=== PATIENT | male | born 1940 | race African-American/Black ===

== ENCOUNTER 2022-12-29 14:09 | Outpatient (CLI) | payer MEDICARE, SELFPAY ==
[2022-12-29 16:29] LABS: Kit Draw Collected
== END 2022-12-29 14:10 | disposition home or self-care (01) ==
LOC: ANHGOSHLAB 14:12
PROVIDERS: PCP Internal Medicine; Visit Provider Clinical Nurse Specialist
DX: I95.9 Hypotension, unspecified (principal); R97.20 Elevated prostate specific antigen [PSA]; E78.5 Hyperlipidemia, unspecified; E55.9 Vitamin D deficiency, unspecified; Z13.228 Encounter for screening for other metabolic disorders
CPT/HCPCS: 36415

== ENCOUNTER 2023-06-10 15:07 | Outpatient (CLI) | payer MEDICARE, SELFPAY ==
--- NOTE | ~2023-06-10 | US_ITS ---
EXAMINATION: US renal BI DATE: 06/10/2023 16:13 INDICATION: Chronic kidney disease, stage 3B. TECHNIQUE: Multiple ultrasound grayscale images of the kidneys were obtained. COMPARISON: None. FINDINGS: The right kidney measures 8.4 x 4.3 x 5.2 cm. The left kidney measures 9.6 x 5.8 x 5.8 cm. The kidney s demonstrate normal parenchymal echogenicity. There is a 2.1 cm cyst in left kidney. There is no hyd ronephrosis. The bladder is decompressed. There is a 5.1 cm fusiform infrarenal aortic aneurysm. IMPRESSION: 1. 5.1 cm fusiform infrarenal aortic aneurysm. Surgical consultation is recommended. 2. Mild atrophy of right kidney. No hydronephrosis. Reviewed, dictated and finalized at location A. OR MEDICAL ASSISTANT IMPRESSION: 1. 5.1 cm fusiform infrarenal aortic aneurysm. Surgical consultation is recomme nded. 2. Mild atrophy of right kidney. No hydronephrosis.
== END 2023-06-10 15:08 | disposition home or self-care (01) ==
PROVIDERS: PCP Internal Medicine; Visit Provider Internal Medicine Nephrology
DX: N18.32 Chronic kidney disease, stage 3b (principal); I71.43 Infrarenal abdominal aortic aneurysm, without rupture
CPT/HCPCS: 76775

== ENCOUNTER 2023-06-30 14:30 | Outpatient (RCR) | payer MEDICARE, SELFPAY ==
[2023-05-19 15:08] VITALS: BMI 19.3
[2023-05-19 15:13] VITALS: BMI 19.3
[2023-06-30 15:04] VITALS: BMI 19.3; BMI 19.9
== END 2023-08-08 12:38 | disposition home or self-care (01) ==
LOC: ANHDMC 14:30
PROVIDERS: PCP Internal Medicine; Visit Provider Internal Medicine
DX: N18.31 Chronic kidney disease, stage 3a (principal); Z71.3 Dietary counseling and surveillance
CPT/HCPCS: 97802; 97803

== ENCOUNTER 2023-10-11 14:07 | Outpatient (CLI) | payer MEDICARE, SELFPAY ==
[2023-10-11 18:18] LABS: Basophils Percent Auto 0.8 % (0.2-1.2); Eosinophils Absolute Auto 0.2 K/mm3 (0-0.3); Eosinophils Percent Auto 4.1 % (0-4.4); Hematocrit 42.7 % (42.0-52.0); Immature Granulocyte Absolute 0.02 K/mm3 (0.00-0.031); Immature Granulocyte Percent A 0.4 % (0-0.5); Lymphocytes Absolute Auto 1.72 K/mm3 (0.9-3.2); Lymphocytes Percent Auto 33.6 % (18.3-44.2); Mean Corpuscular HGB Conc 30.4 g/dl (32-36); Mean Corpuscular Hemoglobin 26.1 pg (26-34); Mean Corpuscular Volume 85.7 fl (80-100); Mean Platelet Volume 10.8 fl (7.4-10.4); Monocytes Absolute Auto 0.4 K/mm3 (0.1-0.6); Monocytes Percent Auto 8.2 % (2.6-8.5); Neutrophils Absolute Auto 2.7 K/mm3 (1.3-6.7); Neutrophils Percent Auto 52.9 % (45.5-73.1); Platelet Count Result 170 k/mm3 (150-375); Red Blood Count 4.98 M/mm3 (4.6-6.20); Red Cell Distribution Width 14.6 % (11.5-14.5); White Blood Count 5.1 K/mm3 (4.5-10.0)
[2023-10-11 18:58] LABS: Alanine Aminotransferase 19 U/L (6-50); Alkaline Phosphatase 85 U/L (38-126); Anion Gap 6 mmol/L (8-16); Aspartate Amino Transferase 42 U/L (17-59); Bilirubin,Total 0.7 mg/dL (0.2-1.3); Blood Urea Nitrogen 25 mg/dL (9-20); Calcium 9.4 mg/dL (8.4-10.2); Carbon Dioxide 28 mmol/L (22-30); Chloride 104 mmol/L (98-107); Estimated Glomerular Filt Rate 39; Glucose 90 mg/dL (65-110); Potassium 4.6 mmol/L (3.4-5.0); Sodium 138 mmol/L (137-145)
[2023-10-11 19:28] LABS: Prostate Specific Antigen 8.5 ng/mL (< OR = 4.0)
== END 2023-10-11 14:08 | disposition home or self-care (01) ==
LOC: ANHGOSHLAB 14:09
PROVIDERS: PCP Internal Medicine; Visit Provider Internal Medicine
DX: I50.9 Heart failure, unspecified (principal); N18.9 Chronic kidney disease, unspecified; R97.20 Elevated prostate specific antigen [PSA]
CPT/HCPCS: 36415; 80053; 84153; 85025

== ENCOUNTER 2024-03-16 11:45 | Outpatient (CLI) | payer MEDICARE, SELFPAY ==
[2024-03-16 14:10] LABS: Hemoglobin A1C 5.5 % (<5.7)
[2024-03-16 14:20] LABS: Anion Gap 11 mmol/L (4-12); Blood Urea Nitrogen 33 mg/dL (9-20); Calcium 9.3 mg/dL (8.4-10.2); Carbon Dioxide 26 mmol/L (22-30); Chloride 103 mmol/L (98-107); Estimated Glomerular Filt Rate 32; Glucose 105 mg/dL (65-110); Phosphorus 3.7 mg/dL (2.5-4.5); Potassium 4.4 mmol/L (3.4-5.0); Sodium 140 mmol/L (137-145)
[2024-03-16 14:21] LABS: Add Urine Microscopic? YES; Appearance Urine Turbid (Clear); Bacteria Urine 4+ /hpf; Bilirubin Urine Negative (Negative); Blood Urine 3+ (Negative); Color Urine Yellow (Yellow); Glucose Urine UA 3+ mg/dL (Negative); Ketones Urine Trace mg/dL (Negative); Leukocyte Esterase Ur 3+ LEU/UL (Negative); Need Manual Microscopic Reviewed; Nitrate Urine Negative (Negative); Non Pathogenic Casts >20; Protein Urine 1+ mg/dL (Negative); RBC Urine 21-50 /hpf (0-2); Specific Grav Ur 1.016 (1.001-1.035); Squamous Epithelial Cell Urine Few /hpf (Few); WBC Urine >100 /hpf (0-3); pH Urine 5.5 (5.0-9.0)
[2024-03-16 14:39] LABS: Total Protein Urine Random 53 mg/dL; Ur Ttl Prot Creatinine Ratio 0.23 mg/mg (0-0.20)
== END 2024-03-16 11:46 | disposition home or self-care (01) ==
PROVIDERS: PCP Internal Medicine; Visit Provider Clinical Nurse Specialist
DX: R73.9 Hyperglycemia, unspecified (principal); N18.32 Chronic kidney disease, stage 3b; I50.9 Heart failure, unspecified; R39.9 Unspecified symptoms and signs involving the genitourinary system
CPT/HCPCS: 36415; 80069; 81001; 82570; 83036; 84156; 87077; 87086; 87088; 87186

== ENCOUNTER 2024-06-14 09:12 | Outpatient (CLI) | payer MEDICARE, SELFPAY ==
[2024-06-14 18:46] LABS: Add Urine Microscopic? YES; Appearance Urine Cloudy (Clear); Bacteria Urine 4+ /hpf; Bilirubin Urine Negative (Negative); Blood Urine 2+ (Negative); Color Urine Yellow (Yellow); Glucose Urine UA 3+ mg/dL (Negative); Ketones Urine Negative (Negative); Leukocyte Esterase Ur 2+ LEU/UL (Negative); Nitrate Urine Negative (Negative); Protein Urine Negative (Negative); RBC Urine 21-50 /hpf (0-2); Specific Grav Ur 1.012 (1.001-1.035); Squamous Epithelial Cell Urine Occasional /hpf (Few); Urobilinogen Urine 0.2 mg/dL (<2.0); WBC Urine 21-50 /hpf (0-3)
== END 2024-06-14 09:13 | disposition home or self-care (01) ==
LOC: ANHGOSHLAB 09:13
PROVIDERS: PCP Internal Medicine; Visit Provider Clinical Nurse Specialist
DX: R39.9 Unspecified symptoms and signs involving the genitourinary system (principal)
CPT/HCPCS: 81001; 87077; 87086; 87186

== ENCOUNTER 2024-08-14 14:18 | Outpatient (CLI) | payer MEDICARE, SELFPAY ==
[2024-08-14 19:54] LABS: Basophils Percent Auto 0.8 % (0.2-1.2); Eosinophils Absolute Auto 0.2 K/mm3 (0-0.3); Eosinophils Percent Auto 3.4 % (0-4.4); Hematocrit 40.8 % (42.0-52.0); Hemoglobin 12.8 g/dL (14.0-18.0); Immature Granulocyte Absolute 0.02 K/mm3 (0.00-0.031); Immature Granulocyte Percent A 0.4 % (0-0.5); Lymphocytes Absolute Auto 1.58 K/mm3 (0.9-3.2); Lymphocytes Percent Auto 31.4 % (18.3-44.2); Mean Corpuscular HGB Conc 31.4 g/dl (32-36); Mean Corpuscular Hemoglobin 26.9 pg (26-34); Mean Corpuscular Volume 85.7 fl (80-100); Mean Platelet Volume 10.6 fl (7.4-10.4); Monocytes Absolute Auto 0.4 K/mm3 (0.1-0.6); Monocytes Percent Auto 8.3 % (2.6-8.5); Neutrophils Absolute Auto 2.8 K/mm3 (1.3-6.7); Neutrophils Percent Auto 55.7 % (45.5-73.1); Platelet Count Result 121 k/mm3 (150-375); Red Blood Count 4.76 M/mm3 (4.6-6.20); Red Cell Distribution Width 15.3 % (11.5-14.5)
[2024-08-14 19:58] LABS: Add Urine Microscopic? YES; Appearance Urine Cloudy (Clear); Bacteria Urine 4+ /hpf; Bilirubin Urine Negative (Negative); Blood Urine 3+ (Negative); Color Urine Yellow (Yellow); Glucose Urine UA 3+ mg/dL (Negative); Ketones Urine Negative (Negative); Leukocyte Esterase Ur 2+ LEU/UL (Negative); Nitrate Urine Positive (Negative); Protein Urine Trace mg/dL (Negative); RBC Urine 21-50 /hpf (0-2); Specific Grav Ur 1.019 (1.001-1.035); Squamous Epithelial Cell Urine None Seen /hpf (Few); Urobilinogen Urine 0.2 mg/dL (<2.0); WBC Urine >100 /hpf (0-3); pH Urine 5.5 (5.0-9.0)
[2024-08-14 20:09] LABS: Parathyroid Intact 52.5 pg/mL (14.5-75.2)
== END 2024-08-14 14:19 | disposition home or self-care (01) ==
LOC: ANHGOSHLAB 14:19
PROVIDERS: PCP Internal Medicine; Visit Provider Internal Medicine
DX: I50.9 Heart failure, unspecified (principal); N18.32 Chronic kidney disease, stage 3b; E55.9 Vitamin D deficiency, unspecified; N25.81 Secondary hyperparathyroidism of renal origin; D63.8 Anemia in other chronic diseases classified elsewhere; Z87.440 Personal history of urinary (tract) infections
CPT/HCPCS: 36415; 81001; 83970; 85025; 87086; 87186

== ENCOUNTER 2024-12-27 14:36 | Outpatient (CLI) | payer MEDICARE, SELFPAY ==
--- OUTSIDE RECORDS SUMMARY | 2024-12-27 15:16 | XMS_ITS | CONTINUITY OF CARE DOCUMENT ---
Author Name harry mcdonald Address Unknown Organization [facility] Address [address] [place] [address] [address] [place] [address] Phone [phone] Care Team Providers Care Restrooms Or Lounges Maid Name Role Phone Storm Lux MD Unavailable [phone] MICHAEL ISAAC DO Unavailable PROBLEMS Condition Status Date Provider Notes Cardiology examination active Storm Lux MD Mitral regurgitation active Storm Swift Dyslipidemia active Storm Lux MD Coronary artery disease active Storm ramírez MD Pulmonary hypertension active Storm Lux MD Cardiomyopathy active Storm Lux MD Shortness of breath active Ramin Sow MD ENCOUNTERS Date Type Provider Location Encounter Diag nosis 9 - 9 In-person encounter Office Visit Ramin Sow MD [facility] Shortness of breath 4 - 4 In-person encounter Office Visit Storm Lux MD [facility] Cardiology examinationMitral regurgitationDyslipidemiaCoronary artery diseasePulmonary hypertensionCardiomyopathy VITAL SIGNS Date Observation Value Provider Body Mass Index (Ratio) 20.00 kg/m2 Tee Sow MD blood pressure, diastolic 74 mm[Hg] Batsheva nkLogchavez blood pressure, systolic 96 mm[Hg] Kim kLogchavez weight E&M 160 [lb_av] Jazmín Gomez pulse rate 80 /min Jazmín Gomez blood pressure, diastolic 74 mm[Hg] Dom Gomez blood pressure, systolic 96 mm[Hg] She mihaela Gomez respiratory rate E&M 18 /min Jazmín Gomez blood pressure, cuff size large oDm Gomez height E&M 75 [in_i] Jazmín Gomez blood pressure, diastolic 71 mm[Hg] Li nkLogchavez blood pressure, systolic 95 mm[Hg] Kim kLogic blood pressure, cuff size regular Ja rret blood pressure, diastolic 71 mm[Hg] Ja rret blood pressure, systolic 95 mm[Hg] Jar ret pulse rate 67 /min Justin y oxygen saturation, oximetry 94 % Justin respiratory rate E&M 12 /min Justin height E&M 75 [in_i] Justin y ALLERGIES No Known Drug Allergies HISTORY OF MEDICATION USE Medication Status Instructions Dates Provider Indications Com ments Jardiance 10 mg tablet active TAKE 1 TABLET DAILY 4 Storm Lux MD Corlanor 5 mg tablet active Take 1 tablet by mouth twice a day 4 Jay Case NP Inpefa 200 mg tablet completed 1 tablet by mouth once a day 4 - 4 Storm Lux MD Plavix 75 mg tablet active Take 1 tablet by mouth once a day Jay Case NP aspirin 81 mg tablet,chewable active Take 1 tablet by mouth once a day Jay Case NP atorvastatin 80 mg tablet active Take 1 tablet by mouth once a day Jay Case NP torsemide 20 mg tablet active Take 1 tablet by mouth once a day Yordan Fournier RN SOCIAL HISTORY Date Observation Value Provider social history E&M S moking History: Usman lorenzana is a former smoker. Ramin Sow MD social history reviewed E&M revi ewed - no changes required Ramin Sow MD cigarette use yes Jazmín Gomez smoking status Former smoker Jazmín del rosario social history reviewed E&M terrance almendarezed - no changes required Jay Case NP social history E&M S moking History: Usman lorenzana is a former smoker. Jay Case NP cigarette use yes Justin Harris ay smoking status Former smoker Justin Moe rday FUNCTIONAL STATUS Date Observation Value Provider HRA, CV Assess/Plan, Angina (inactive) Management Plan continue current therapy Jay Case NP INSURANCE PROVIDERS Payer name Policy type / Coverage type [employer] O [id number] ADVANCE DIRECTIVES Name Date DISCUSSED - NO DECISION MADE TREATMENT PLAN Date Name Performer [id number],S,n eeds to start toursemide and se how his sympoms are. continue with SGLT2, Corlanor. BP runs to low to tolerate Asar or entresto Ramin Sow MD [id number],C, S table without angina s/p PCI to Ramus. Continue DAPT with ASA and Clopidogrel. Ramin Sow MD [id number],C, L ikely ischemic. He does not have any peripheral edema. He is having increasing shortness of breath, likely related to his MR with planned LEILANI as noted above. Will start Inpefa and Corlanor. His blood pressure is too low for ACEi/ARB/ARNi or B-eduardo. Ramin Sow MD [id number],C, P harriett recently had a MitraClip placed. His last echo reported severe MR (this is post MitraClip). He is redeveloping symptoms of shortness of breath. Will arrange for LEILANI for further evaluation. February 09, 2023 -era liu started touresemide and needs to do that see how his symptoms are. needs to get scheduled for LEILANI. planned for Mar.04 at [facility] Sow MD [id number],C,S table without angina s/p PCI to Ramus. Continue DAPT with ASA and Clopidogrel. Jay Diorgurjitsandhya ALBARO [id number],C,C ontinue high intensity Atorvastatin. Jay Diorgurjitsandhya ALBARO [id number],C,L ikely ischemic. He does not have any peripheral edema. He is having increasing shortness of breath, likely related to his MR with planned LEILANI as noted above. Will start Inpefa and Corlanor. His blood pressure is too low for ACEi/ARB/ARNi or B-eduardo. Jay Manpreet IRVIN [id number],C,P atient recently had a MitraClip placed. His last echo reported severe MR (this is post MitraClip). He is redeveloping symptoms of shortness of breath. Will arrange for LEILANI for further evaluation. Jay Case NP Cardiology:needs to start toursemide and se how his sympoms are. continue with SGLT2, Corlanor. BP runs to low to tolerate Asar or entresto Ramin Sow MD Cardiology: S table without angina s/p PCI to Ramus. Continue DAPT with ASA and Clopidogrel. Ramin Sow MD Cardiology: L ikely ischemic. He does not have any peripheral edema. He is having increasing shortness of breath, likely related to his MR with planned LEILANI as noted above. Will start Inpefa and Corlanor. His blood pressure is too low for ACEi/ARB/ARNi or B-eduardo. Ramin Sow MD Cardiology: Usman atient recently had a MitraClip placed. His last echo reported severe MR (this is post MitraClip). He is redeveloping symptoms of shortness of breath. Will arrange for LEILANI for further evaluation. February 09, 2023 -era liu started touresemide and needs to do that see how his symptoms are. needs to get scheduled for LEILANI. planned for Aug.11 at [facility] Ramin Sow MD Cardiology:Stable wi thout angina s/p PCI to Ramus. Continue DAPT with ASA and Clopidogrel. Jay Case NP Cardiology:Continue high intensi ty Atorvastatin. Jay Manpreet IRVIN Cardiology:Likely is chemic. He does not have any peripheral edema. He is having increasing shortness of breath, likely related to his MR with planned LEILANI as noted above. Will start Inpefa and Corlanor. His blood pressure is too low for ACEi/ARB/ARNi or B-eduardo. Jay Case NP Cardiology:Patient r ecently had a MitraClip placed. His last echo reported severe MR (this is post MitraClip). He is redeveloping symptoms of shortness of breath. Will arrange for LEILANI for further evaluation. Jaymagnolia Case NP Date Name PROBNP, N TERMINAL FOLATE, SERUM VITAMIN B12 IRON AND TOTAL IRON BINDING CAPACITY FERRITIN CBC (INCLUDES DIFF/P LT) BASIC METABOLIC PANE L W/EGFR Microalb/Creatinine Urine, Random CRP, high sensitivit y Lipoprotein (a) LIPID PANEL HISTORY OF PROCEDURES Procedure Date Procedure Name Provider Procedure Notes S tatus EKG Ramin Sow MD compl eted EKG Storm Lux MD complete d
--- OUTSIDE RECORDS SUMMARY | 2024-12-27 15:16 | XMS_ITS | Clinical Summary ---
Author Organization [facility] Address [address] [place] [address] Care Team Providers Care Country Sales Manager Name Role Phone Unavailable Primary Care Provider Unavailabl e Medications No known medications Active Problems No known active problems Encounters Date Type Department Care Team Description 12/18/2024 External Device Data [facility] ABSTRACTION Provider, Abstract 12/13/2024 External Device Data [facility] Provider, Abstract 12/12/2024 External Device Data [facility] Provider, Abstract 12/11/2024 External Device Data [facility] Provider, Abstract 10/10/2024 External Device Data [facility] Provider, Abstract 09/29/2024 External Device Data [facility] Provider, Abstract 2024 External Device Data [facility]STRACTION Provider, Abstract from Last 3 Months Immunizations Immunization Administration Dates Next Due (AREXVY)(61 YR UP) RSV, KENZIE MBINANT, PROTEIN SUBUNIT RSVPREF, ADJUVANT RECONSTITUTED, 0.5 ML, PF 08/18/2023 (COMIRNATY)(13 YR UP) COVID- 19 VACCINE, MRNA, SPIKE PROTEIN, LNP, ALICIA(PF) 30 MCG/0.3 ML IM SUSP 06/22/2023 Social History Tobacco Use Types Packs/Day Years Used Date Smoking Tobacco: Never Smokeless Tobacco: Never Sex and Gender Information Value Date Recorded Sex Assigned at Not on file Legal Sex Male 11:27 AM CDT Gender Identity Not on file Sexual Orientation Not on file Last Filed Vital Signs Vital Sign Reading Time Taken Comments Blood Pressure - - Pulse - - Temperature - - Respiratory Rate 20 08/23/2023 10:51 AM [employer] Oxygen Saturation - - Inhaled Oxygen Concentration - - Weight 71.7 kg (158 lb) 06/25/2024 12:45 PM [employer] Height 190.5 cm (6' 3) 06/25/2024 12:45 PM [employer] Body Mass Index 19.75 06/25/2024 12:45 PM [employer] Plan of Treatment Health Maintenance Due Date Last Done Comments DTAP/TDAP/TD VACCINES (1 - Tdap) 1959 PNEUMOCOCCAL VACCINE 50+ YEARS (1 of 2 - PCV) 09/28/18 62 ZOSTER VACCINE (1 of 2) 09/29/1991 INFLUENZA VACCINE (#1) 2024 COVID-19 Vaccine (2 - season) 2024 RSV VACCINE (60+ or ) Completed 08/18/2023 Insurance [employer] Medicare Part D [employer] PPO MCR
--- OUTSIDE RECORDS SUMMARY | 2024-12-27 15:16 | XMS_ITS | Referral Summary ---
Author Organization [facility] Address [address] [place] [address] Care Team Providers Care Aerospace Medicine Physician Name Role Phone Jose Kim DO Primary Care Provider [phone] Jose Smith MD Unavailable Encounters Date Type Department Care Team Description 09/26/2024 Orders Only [facility] at [address] [place] [phone] Dionisio Nam MD Aftercare following surgery of the circulatory system (Primary Dx); Infrarenal abdominal aortic aneurysm (AAA) without rupture 09/26/2024 10:00 AM CRIPPLE WORKER Office Visit [facility] at [address] [place] [phone] Fernanda Okeefe PA Infrarenal abdominal aortic aneurysm (AAA) without rupture (Primary Dx); Aneurysm of internal iliac artery; Aneurysm of right common iliac artery; Mixed hyperlipidemia from Last 3 Months Allergies No known active allergies Medications folic acid (FOLVITE) 400 mcg tablet Take 1 tablet (400 mcg total) by mouth with lunch Active torsemide (DEMADEX) 5 mg tablet TAKE 1/2 TABLET(2.5 MG) BY MOUTH DAILY 45 tablet 3 04/23/2024 Active spironolactone (ALDACTONE) 25 mg tablet TAKE 1 TABLET(25 MG) BY MOUTH DAILY 30 tablet 11 04/23/2024 Active clopidogreL (PLAVIX) 75 mg tablet TAKE 1 TABLET(75 MG) BY MOUTH DAILY. 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 On CT has no evidence of endoleak and all stents are patent. Needs ongoing surveillance with repeat CT abdomen pelvis in 6 months Assessment & Plan (02/09/2024 11:35 AM CDT): Impression: Patient is status post endovascular repair of a AAA, and bilateral common iliac artery aneurysms. He denies any symptoms of claudication, ischemic rest pain or ulcerations to his lower extremity. Plan: Continue ongoing risk factor modifications. -continue Plavix. -patient to follow-up in 4 weeks for re-evaluation with CTA of abdomen pelvis for further evaluation of repair. Aneurysm of right common iliac artery 12/21/2023 Assessment & Plan (01/20/2024 12:10 PM CDT): Iliac branch device Assessment & Plan (12/22/2023 7:27 AM CDT): Risks benefits and alternatives to endovascular abdominal aortic aneurysms repair with iliac branch device for a right common iliac artery aneurysms discussed with the patient and his , risks including bleeding, infection, perforation, contrast induced nephropathy, dissection, thrombosis distal embolization ischemia to the lower extremities or pelvis, HI stroke and . They wished to proceed. We did discuss the need for coil embolization of his left hypogastric artery aneurysm. Aneurysm of internal iliac artery 12/21/2023 Assessment & Plan (01/20/2024 12:10 PM CDT): Status post coil embolization of left hypogastric artery and preparation for a AAA repair and iliac branch device. Some buttock claudication which has resolved. Assessment & Plan (12/22/2023 7:28 AM CDT): Risks benefits alternatives to coil embolization of his left hypogastric artery aneurysms discussed, risks including bleeding, infection, perforation, contrast induced nephropathy, dissection, thrombosis, distal embolization, buttock claudication and need further surgery. He wished proceed. We discussed this would be a staged approach with the coil embolization happening 1st as an outpatient. Nonischemic cardiomyopathy 12/14/2023 Infrarenal abdominal aortic aneurysm (AAA) witho ut rupture 11/10/2023 Assessment & Plan (01/20/2024 12:10 PM CDT): Scheduled for endovascular abdominal aortic aneurysm repair with endograft and right iliac branch device. Risks benefits alternatives discussed I prior appointment with the patient and his . Plan for surgery this next week. Assessment & Plan (12/22/2023 7:27 AM CDT): Endovascular abdominal aortic aneurysm, risks benefits alternatives as above and discussion of the right common iliac artery aneurysm. Assessment & Plan (12/12/2023 3:22 PM CDT): 5.4 cm infrarenal abdominal aortic aneurysms as well as a 3 cm right common iliac artery aneurysms as well as a left hypogastric artery aneurysm. We will plan for follow-up in 1-2 weeks after I have had further time to review his imaging, he is likely going to need coil embolization of the left hypogastric artery aneurysms with an iliac branch device and endograft for the AAA and right common iliac artery aneurysm. Continue risk factor modification with Plavix statin therapy and good blood pressure control. Assessment & Plan (11/10/2023 3:07 PM CDT): Impression: Patient has a known infrarenal abdominal aortic aneurysms as well as bilateral iliac artery aneurysms found on CT scan of abdomen and pelvis performed in October 2022. He remains asymptomatic. Plan: Recommend further evaluation of aneurysms with CT of abdomen and pelvis follow-up in 2 weeks for re-evaluation. PVD (peripheral vascular disease) 11/10/2023 Assessment & Plan (11/10/2023 3:13 PM CDT): Impression: Patient has a history of balloon angioplasty to left PT and peroneal artery and a drug eluting stent to the left PT for acute limb ischemia. He currently denies any ischemic rest pain or ulcerations to his lower extremity. Plan: CTA of abdomen pelvis with runoff for further evaluation. Follow-up in 2 weeks. Mixed hyperlipidemia 11/10/2023 Assessment & Plan (12/12/2023 3:23 PM CDT): Stable continue Lipitor 80 mg. Assessment & Plan (11/10/2023 3:14 PM CDT): Impression: Chronic and stable. Plan: Continue atorvastatin. Chronic systolic heart failure 11/02/2023 Assessment & Plan (12/12/2023 3:22 PM CDT): Stable continue torsemide 2.5 mg. Assessment & Plan (11/02/2023 10:31 AM CDT): Persistent, severe LV dysfunction despite > 3 months GDMT. NYHA class 2-3 symptoms. ECG shows narrow QRS. No benefit to EXECUTIVE RELATIONS SPECIALIST. Recommend ICD implantation for primary prevention of SCD. Reviewed procedural steps, risks/benefits, recovery in detail. Elevated procedural risk due to severe cardiomyopathy. --ICD implantation w/anesthesia ([employer]) UTI (urinary tract infection) 04/17/2023 senior living (current) use of anticoagulants 2022 Aftercare following surgery of the circulatory s ystem 03/29/2023 History of mitral valve replacement 02/21/2023 Protein-calorie malnutrition, severe 02/14/2023 Shortness of breath 02/13/2023 Severe mitral regurgitation 11/23/2022 Acute hypoxemic respiratory failure 11/21/2022 CALISTA (acute kidney injury) 11/10/2022 NSTEMI (non-ST elevated myocardial infarction) 0 11/10/2022 Acute lower limb ischemia 11/10/2022 Social History Tobacco Use Types Packs/Day Years Used Date Smoking Tobacco: Former Cigarettes Q uit: 07/25/2022 Tobacco Cessation:Counseling Given: Not Answered Alcohol Use Standard Drinks/Week Comments Not Currently 0 (1 standard drink = 0.6 oz pur e alcohol) [facility] Utilities Answer Date Recorded In the past 12 months has th e electric, gas, oil, or water company threatened to shut off services in your home? No 01/24/2024 Social Connection and Isolat ion Panel [NHANES] Answer Date Recorded In a typical week, how many times do you talk on the phone with family, friends, or neighbors? More than three times a week 01/24/2024 How often do you get togethe r with friends or relatives? More than three times a week 01/24/2024 How often do you attend chur ch or taoist services? Never 01/24/2024 Active Member of Clubs or Organizations Not on f ile 01/24/2024 How often do you attend meet ings of the clubs or organizations you belong to? More than 4 times per year 01/24/2024 Are you , , di vorced, , never , or living with a partner? 01/24/2024 AUDIT-C Answer Date Recorded Q1: How often do you have a drink containing alc ohol? Never 01/23/2024 Q2: How many drinks containi ng alcohol do you have on a typical day when you are drinking? 1 or 2 01/23/2024 Q3: How often do you have six or more drinks on one occasion? Never 01/23/2024 Overall Financial Resource Strain (CARDIA) Answe r Date Recorded How hard is it for you to pa y for the very basics like food, housing, medical care, and heating? Not hard at all 01/24/2024 Hunger Vital Sign Answer Date Recorded Within the past 12 months, y ou worried that your food would run out before you got the money to buy more. Never true 01/24/20 24 Within the past 12 months, t he food you bought just didn't last and you didn't have money to get more. Never true 01/24/2024 PRAPARE - Transportation Answer Date Re corded In the past 12 months, has l ack of transportation kept you from medical appointments or from getting medications? No 08/2023 In the past 12 months, has l ack of transportation kept you from meetings, work, or from getting things needed for daily living? No 01/24/2024 Housing Stability Vital Sign Answer Perez e Recorded In the last 12 months, was t here a time when you were not able to pay the mortgage or rent on time? No 04/18/2023 In the last 12 months, how many places have you lived? 1 04/18/2023 In the last 12 months, was t here a time when you did not have a steady place to sleep or slept in a chcf (including now)? No 04/18/2023 Housing Stability Vital Sign Answer Perez e Recorded In the last 12 months, was t here a time when you were not able to pay the mortgage or rent on time? No 01/24/2024 In the past 12 months, how m any times have you moved where you were living? 0 01/24/2024 At any time in the past 12 m [facility], were you homeless or living in a chcf (including now)? No 01/24/2024 Personal Safety Answer Date Recorded Have you ever been in or are you currently in a harmful physical or emotional relationship or is someone making you feel afraid or unsafe? Denies 01/23/2024 Sex and Gender Information Value Date Recorded Sex Assigned at Not on file Legal Sex Male 11:26 AM CDT Gender Identity Not on file Sexual Orientation Not on file Last Filed Vital Signs Vital Sign Reading Time Taken Comments Blood Pressure 110/73 09/26/2024 10:09 AM CRIPPLE WORKER Pulse 69 09/26/2024 10:09 AM CRIPPLE WORKER Temperature 36.7 C (98.1 F) 01/24/2024 8:00 AM CDT Respiratory Rate 22 01/24/2024 10:00 AM CDT Oxygen Saturation 95% 09/26/2024 10:09 AM CRIPPLE WORKER Inhaled Oxygen Concentration - - Weight 74.8 kg (165 lb) 09/26/2024 10:09 AM CRIPPLE WORKER Height 190.5 cm (6' 3) 09/26/2024 10:09 AM CRIPPLE WORKER Body Mass Index 20.62 09/26/2024 10:09 AM CRIPPLE WORKER Plan of Treatment Not on file Medical Devices Implanted Type Area Point Of Care Technician Device Identifier Shelf Expiration Date Model / Serial / Lot Chicas V[employer] Mitraclip G4 Xtw Cardiac Valve Clip [id number] - [id number] Implanted:Qty: 1 on 11/24/2022 by Moiz Whitten MD PhD at [facility] N/A: Mitral Valve [employer] 09/06/2023 [id number] -XTW / / [id number] [employer] Mitraclip G4 Xtw Cardiac Valve Clip Lwz4265-Ctv - [id number] Implanted:Qty: 1 on 11/24/2022 by Moiz Whitten MD PhD at [facility] N/A: Mitral Valve [employer] 09/06/2023 [id number] -XTW / / [id number] [employer] Angio-Seal Vip 6fr Closere Device [id number] - [id number] - [id number] Implanted:Qty: 1 on 11/11/2022 by Benjamin Chang MD at [facility] Right: Groin [employer] 05/24/2023 [id number] / [id number] / [id number] [employer] [place] Excluder 10mm 10cm Branch Component Iliac Graft Endovascular [id number] - [id number] - [id number] Implanted:Qty: 1 on 01/23/2024 by Dionisio Nam MD at [facility] Endoprosthesi s Right: Common Iliac Artery [employer] [id number] 10/10/2024 [id number] 10A / [id number] / [employer] Defib Cardiac [id number] [id number] [place] Implantable 2 Chamber Ecepd567m - [id number] - [id number] Implanted:Qty: 1 on 12/22/2023 by Moises Rivera III, MD at [facility] ICD [employer] [id number] 08/24/2025 CDDRA50 0Q / [id number] / [employer] Cath Iab 6in 7.5fr Linear .025in Durathane Insertion Kit 9158-62-2884-0 1 - [id number] - [id number] Implanted:Qty: 1 on 11/11/2022 by Benjamin Chang MD at [facility] LVAD Right: Groin [employer] 09/09/2025 0684-00 -0480-[id number] [employer] Durata 6.8fr 65cm True Bipolar Active Fixation Extendable 1 Coil 7122q/65 - [id number] - [id number] Implanted:Qty: 1 on 12/22/2023 by Moises Rivera III, MD at [facility] Lead [employer] [id number] 10/22/2026 7122Q/6 5 / [id number] / [employer] Tendril Sts 6fr 52cm Is-1 Connector Active Fixation Bipolar Soft 2087tc/ - [id number] - [id number] Implanted:Qty: 1 on 12/22/2023 by Moises Rivera III, MD at [facility] Lead [employer] [id number] 11/21/20262087TC/ 52 / [id number] / [employer] Valve Coronary Mitral Tissue Stented Epic Plus 33mm F858-45j-26 - [id number] - [id number] Implanted:Qty: 1 on 02/21/2023 by Marco Antonio Cary MD at [facility] Prosthetic Valve N/A: Mitral Valve [employer] 09/26/2026 E200-33 M / [id number] / [employer] Stent Coronary De Rx Cocr Ors Msn 3.0x13mm 933355 - [id number] - [id number] Implanted:Qty: 1 on 11/11/2022 by Benjamin Chang MD at [facility] Stent Ramus Intermedius Coronary Artery [employer] 05/25/2023 115832 / [id number] [employer] Stent Coronary De Rx Cocr Ors Msn 3.0x30mm 564253 - [id number] Implanted:Qty: 1 on 11/14/2022 by Carol Brady MD PhD at [facility] Stent Left: Other - see comments [employer] [id number] 02/10/2024 414913 / / [id number] Description:Posterior tibial artery [employer] [place] Excluder 12mm 7cm Internal Component Iliac Graft [id number] - [id number] - [id number] Implanted:Qty: 1 on 01/23/2024 by Dionisio Nam MD at [facility] Stent Right: Internal Iliac Vein [employer] [id number] 01/18/2026 WFD2053 07A / [id number] / Wl [employer] Excluder 14.5mm 28.5mm 12cm 5.5cm Conformable Active Control Trunk [id number] - [id number] - [id number] Implanted:Qty: 1 on 01/23/2024 by Dionisio Nam MD at [facility] Stent Right: Aorta [employer] [id number] 10/30/2026 DPR9491 12 / [id number] / Wl [employer] [place]on Excluder 27mm 21.5-25mm 10cm Sinusoidal Stent Seal Cuff [id number] - [id number] - [id number] Implanted:Qty: 1 on 01/23/2024 by Dionisio Nam MD at [facility] Stent Right: Common Iliac Artery [employer] [id number] 05/30/2026 [id number] 00 / [id number] / W[employer] [place] Excluder 12mm 14cm Contralateral Leg Graft Endovascular [id number] - [id number] - [id number] Implanted:Qty: 1 on 01/23/2024 by Dionisio Nam MD at [facility] Stent Left: External Iliac Artery [employer] [id number] 08/08/2026 FJF3770 00 / [id number] / Wl [employer] 28.5mm 24-26mm 3.3cm Aorta Graft Endovascular Txa085024 - [id number] - [id number] Implanted:Qty: 1 on 01/23/2024 by Dionisio Nam MD at [facility] Stent Right: Common Iliac Artery [employer] [id number] 04/21/2024 TNH3235 00 / [id number] / [employer] Device Clsr Perclose Prostyle Sut-Mediatd Closure-Repair Sys 50821-80 - [id number] Implanted:Qty: 1 on 11/24/2022 by Moiz Whitten MD PhD at [facility] Vascular Closure Device [employer] 08/24/2024 88090-6 [id number] [employer] Device Clsr Perclose Prostyle Sut-Mediatd Closure-Repair Sys 93798-25 - [id number] Implanted:Qty: 1 on 11/24/2022 by Moiz Whitten MD PhD at [facility] Vascular Closure Device [employer] 08/24/2024 45260-3 [id number] [employer] Mitraclip Implant G4 System [id number] - [id number] Implanted:Qty: 1 on 11/24/2022 by Moiz Whitten MD PhD at [facility] [employer] [id number] 0 / / [employer] Inc Rosalinda Pod 8mm 60cm Complex Occulusion Device Coil Embolization Rbypod8 - [id number] Implanted:Qty: 1 on 01/09/2024 by Dionisio Nam MD at [facility] [employer] Inc 06/26/2031 RBYPOD8 / / [id number] Pen[employer] Inc Pod 60cm Pack J-Soft Coil Embolization Sterile Latex Free Abommzz94 - [id number] Implanted:Qty: 1 on 01/09/2024 by Dionisio Nam MD at [facility] [employer] 11/02/2030 RBYPODJ 60 / / [id number] [employer] Inc Pod 60cm Pack J-Soft Coil Embolization Sterile Latex Free [id number] - [id number] Implanted:Qty: 1 on 01/09/2024 by Dionisio Nam MD at [facility] [employer] Inc 11/02/2030 RBYPODJ 60 / / [id number] Pen[employer] Inc Penumbra Coil 400 Rosalinda .02in 14mm 60cm Complex Large Volume Fully [id number] - [id number] Implanted:Qty: 1 on 01/09/2024 by Dionisio Nam MD at [facility] [id number] 04/10/2031 GIV3I54 60 / / [id number] [facility] Pod 60cm Pack J-Soft Coil Embolization Sterile Latex Free [id number] - [id number] Implanted:Qty: 1 on 01/09/2024 by Dionisio Nam MD at [facility] 11/02/2030 RBYPODJ 60 / / [id number] [employer] System Closure Repair Femoral Artery Suture Mediated Perclose Prostyle 36323-78 - [id number] Implanted:Qty: 1 on 01/23/2024 by Dionisio Nam MD at [facility] Left: Groin [employer] 08/24/2025 09849-6 3 / / [id number] [employer] System Closure Repair Femoral Artery Suture Mediated Perclose Prostyle 74791-58 - [id number] Implanted:Qty: 1 on 01/23/2024 by Dionisio Nam MD at [facility] Left: Groin [employer] 08/24/2025 85134-9 3 / / [id number] [employer] System Closure Repair Femoral Artery Suture Mediated Perclose Prostyle 94431-31 - [id number] Implanted:Qty: 1 on 01/23/2024 by Dionisio Nam MD at [facility] Right: Groin [employer] 08/24/2025 40393-6 3 / / [id number] [employer] System Closure Repair Femoral Artery Suture Mediated Perclose Prostyle 76409-68 - [id number] Implanted:Qty: 1 on 01/23/2024 by Dionisio Nam MD at [facility] Right: Groin [employer] 08/24/2025 26160-6 3 / / [id number] Explanted Type Area Point Of Care Technician Device Identifier Shelf Expiration Date Model / Serial / Lot Bard Peripheral Vascular Bard .25x.25in Marcy Thk1.65mm Square [employer] Cardi[employer] Ptfe 164332 - [id number] Explanted:Qty: 1 on 02/21/2023 by Marco Antonio Cary MD at [facility] N/A: Heart Bard Peripheral Vascular [id number] / / Insurance [facility] MEDICARE [employer] MEDICARE [employer] MEDICARE HMO Advance Directives For more information, please contact: [phone] * Full Code (Latest Code Status on File) Date Activated Date Inactivated Comments 01/23/2024 2:28 PM 01/24/2024 5:43 PM * Full Code Date Activated Date Inactivated Comments 01/09/2024 1:30 PM 01/09/2024 7:26 PM * Full Code Date Activated Date Inactivated Comments 12/22/2023 5:48 PM 12/23/2023 12:56 AM * Full Code Date Activated Date Inactivated Comments 04/17/2023 4:23 AM 04/20/2023 9:56 PM * Full Code Date Activated Date Inactivated Comments 02/13/2023 5:32 AM 03/02/2023 8:18 PM Care Teams Aerospace Medicine Physician Relationship Specialty Start Date End Date Jose Kim DO PCP - General Internal Medicine 02/12/23 Jose Smith MD [address] [place] [address] Consulting Physician Cardiology 03/29/23
--- OUTSIDE RECORDS SUMMARY | 2024-12-27 15:16 | XMS_ITS | Clinical Summary ---
Author Organization [facility] Address [address] [place] [address] Phone Care Team Providers Care Day Spa Manager Name Role Phone Elisa Morales APRN, RIVETING MACHINE OPERATOR Primary Care Provider Social History Tobacco Use Types Packs/Day Years Used Date Smoking Tobacco: Never Assessed Sex and Gender Information Value Date Recorded Sex Assigned at Not on file Legal Sex Male 12:11 AM CDT Gender Identity Not on file Sexual Orientation Not on file Plan of Treatment Health Maintenance Due Date Last Done Comments Hepatitis C Virus (HCV) Screening 1940 Pneumococcal Immunization (50+ years) (1 of 1 - PCV) 09/29/1991 Zoster Immunization (1 of 2) 09/29/1991 Respiratory Syncytial Virus (RSV) Immunization (Adult) (1 - 1-dose 75+ series) 2016 Influenza Immunization (#1) 2024 SARS-COV-2 Immunization ( season) 2024 12/11/2021, 06/08/2021, 10/02/2020, Additional history exists DTaP/Tdap/Td Immunization Discontinued 10/14/2016 TdaP Immunization Completed 10/14/2016 Hepatitis B Immunization Aged Out No longer eligible based on patient's age to complete this topic Meningococcal Immunization (ACWY) Aged Out No longer eligible based on patient's age to complete this topic Rotavirus Immunization Aged Out No lo nger eligible based on patient's age to complete this topic Insurance MEDICARE C WELLCARE Care Teams Day Spa Manager Relationship Specialty Start Date End Date Elisa Morales, METAL ROOM DENTAL TECHNICIAN, RIVETING MACHINE OPERATOR [address] [facility] [address], [place] [address] PCP - General Advanced Practice Nurse 01/18/23
--- OUTSIDE RECORDS SUMMARY | 2024-12-27 15:16 | XMS_ITS | Clinical Summary ---
Author Organization [facility] al Address [address] [place] [address] Care Team Providers Care Client Technical Support Associate Name Role Phone Jose Kim DO Primary Care Provider [phone] Jose Smith MD Unavailable [phone] Allergies No known active allergies Medications folic [...] ischemia to the lower extremities or pelvis, ME stroke and . They wished to proceed. [...] ECG shows narrow QRS. 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 Recommend ICD implantation for primary prevention of SCD. Reviewed procedural steps, risks/benefits, recovery in detail. Elevated procedural risk due to severe cardiomyopathy. --ICD implantation w/anesthesia ([employer]) UTI (urinary tract infection) 04/17/2023 care home (current) use of anticoagulants 2022 Aftercare following surgery of the circulatory s ystem 03/29/2023 History of mitral valve replacement 02/21/2023 Protein-calorie malnutrition, severe 02/14/2023 Shortness of breath 02/13/2023 Severe mitral regurgitation 11/23/2022 Acute hypoxemic respiratory failure 11/21/2022 CALISTA (acute kidney injury) 11/10/2022 NSTEMI (non-ST elevated myocardial infarction) 0 11/10/2022 Acute lower limb ischemia 11/10/2022 Encounters Date Type Department Care Team Description 09/26/2024 10:00 AM CARD GAME 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 Office Visit [facility] at [address] [place] [phone] Fernanda Okeefe PA Infrarenal abdominal aortic aneurysm (AAA) without rupture (Primary Dx); Aneurysm of internal iliac artery; Aneurysm of right common iliac artery; Mixed hyperlipidemia 09/26/2024 Orders Only [facility] at [address] [place] [phone] Dionisio Nam MD Aftercare following surgery of the circulatory system (Primary Dx); Infrarenal abdominal aortic aneurysm (AAA) without rupture from Last 3 Months Surgical History Surgery Date Site/Laterality Comments US GUIDED THORACENTESIS 12/03/2022 N/A CARDIAC STENT PLACEMENT 01/2023 MITRAL VALVE REPLACEMENT 02/21/[address] [facility] Epic tissue CARDIAC DEFIBRILLATOR PLACEMENT 12/22/2023 Left Chicas Galant, Lt upper chest. TONSILLECTOMY Childhood Medical History Medical History Date Comments CHF (congestive heart failure) ([facility]) High cholesterol Nonischemic cardiomyopathy ([facility]) Infrarenal abdominal aortic aneurysm, without ru pture S/P MVR (mitral valve replacement) CAD (coronary artery disease) NSTEMI (non-ST elevated myocardial infarction) ( [facility]) 2022 Hypertension DVT (deep venous thrombosis) (CMS/HCC) (HCC), H/ O 2022 COPD (chronic obstructive pulmonary disease) ([facility]) History of pleural effusion 2022 CKD (chronic kidney disease) Social History Tobacco Use Types Packs/Day Years Used Date Smoking Tobacco: Former Cigarettes Q uit: 07/25/2022 Tobacco Cessation:Counseling Given: Not Answered Alcohol Use Standard Drinks/Week Comments Not Currently 0 (1 standard drink = 0.6 oz pur e alcohol) [employer] 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 Never 01/24/2024 Active Member of Clubs [...] place to sleep or slept in a assisted (including now)? No 04/18/2023 Housing Stability Vital Sign Answer Perez e Recorded In the last 12 months, was t here a time when you were not able to pay the mortgage or rent on time? No 01/24/2024 In the past 12 months, how m any times have you moved where you were living? 0 01/24/2024 At any time in the past 12 m [facility], were you homeless or living in a assisted (including now)? No 01/24/2024 Personal Safety Answer [...] on file Sexual Orientation Not on file Obstetrics History Last Filed Vital Signs Vital Sign Reading Time Taken Comments Blood Pressure 110/73 09/26/2024 10:09 AM CARD GAME OPERATOR Pulse 69 09/26/2024 10:09 AM CARD GAME OPERATOR Temperature 36.7 C (98.1 F) 01/24/2024 8:00 AM CDT Respiratory Rate 22 01/24/2024 10:00 AM CDT Oxygen Saturation 95% 09/26/2024 10:09 AM CARD GAME OPERATOR Inhaled Oxygen Concentration - - Weight 74.8 kg (165 lb) 09/26/2024 10:09 AM CARD GAME OPERATOR Height 190.5 cm (6' 3) 09/26/2024 10:09 AM CARD GAME OPERATOR Body Mass Index 20.62 09/26/2024 10:09 AM CARD GAME OPERATOR Plan of Treatment Health Maintenance Due Date Last Done Comments Depression Screening 1940 Hepatitis B Screening 09/29/1959 Pneumococcal vaccine 65+ (1 of 2 - PCV) 1960 Zoster Vaccine (1 of 2) 09/29/1991 Well Visit 65+ 2006 Covid-19 Vaccine (5 - 2023-2 5 season) 2024 12/11/2021, 06/08/2021, 10/02/2020, Additional history exists Fall Risk Assessment 01/22/2025 01/23/2024 Influenza Vaccine (Season Ended) 2025 DTaP/Tdap/Td Vaccine (2 - Td or Tdap) 10/14/2026 10/14/2016 Medical Devices Implanted Type Area Creative Developer Device Identifier Shelf Expiration Date Model / Serial / Lot Chicas Vascular Mitraclip G4 Xtw Cardiac Valve Clip [id number] - [id number] Implanted:Qty: 1 on 11/24/2022 by Moiz Whitten MD PhD at [facility] Clip N/A: Mitral Valve [employer] 09/06/2023 [id number] -XTW / / [id number] Chicas V[employer] Mitraclip G4 Xtw Cardiac Valve Clip Hig0157-Srh - [id number] Implanted:Qty: 1 on 11/24/2022 by Moiz Whitten MD PhD at [facility] Clip N/A: Mitral Valve [employer] 09/06/2023 [id number] -XTW / / [id number] [employer] Ashley Angio-Seal Vip 6fr Closere Device [id number] - [id number] - [id number] Implanted:Qty: 1 on 11/11/2022 by Benjamin Chang MD at [facility] Collagen Right: Groin [employer] Ashley 05/24/2023 [id number] / [id number] / [id number] [employer] Willard Excluder 10mm 10cm Branch Component Iliac Graft Endovascular [id number] - [id number] - [id number] Implanted:Qty: 1 on 01/23/2024 by Dionisio Nam MD at [facility] Endoprosthesi s Right: Common Iliac Artery [employer] [id number] 10/10/2024 [id number] 10A / [id number] / Chicas V[employer] Defib Cardiac [id number] 58g51bb [place] Implantable 2 Chamber Nhasi232h - [id number] - [id number] Implanted:Qty: 1 on 12/22/2023 by Moises Rivera III, MD at [facility] ICD Chicas Vascular [id number] 08/24/2025 [id number] 0Q / [id number] / [employer] [place] [employer] Cath Iab 6in 7.5fr Linear .025in Durathane Insertion Kit 5484-28-8584-0 1 - [id number] - [id number] Implanted:Qty: 1 on 11/11/2022 by Benjamin Chang MD at [facility] LVAD Right: Groin [employer] 09/09/2025 0684-00 -0480-0 / [id number] 14 / [id number] [employer] Durata 6.8fr 65cm True Bipolar Active Fixation Extendable 1 Coil 7122q/65 - [id number] - [id number] Implanted:Qty: 1 on 12/22/2023 by Moises Rivera III, MD at [facility] Lead [facility] [employer] [id number] 10/22/2026 7122Q/6 5 / [id number] 26 / [employer] Tendril Sts 6fr 52cm Is-1 Connector Active Fixation Bipolar Soft 52 - [id number] - [id number] Implanted:Qty: 1 on 12/22/2023 by Moises Rivera III, MD at [facility] Lead [facility] [employer] [id number] 11/21/2026 52 / [id number] / [employer] Valve Coronary Mitral Tissue Stented Epic Plus 33mm L506-61n-71 - [id number] - [id number] Implanted:Qty: 1 on 02/21/2023 by Marco Antonio Cary MD at [facility] Prosthetic Valve N/A: Mitral Valve [facility] [employer] Inc 09/26/2026 E200-33 M / [id number] / Biotron[employer] Inc Stent Coronary De Rx Cocr Ors Msn 3.0x13mm 180055 - [id number] - [id number] Implanted:Qty: 1 on 11/11/2022 by Benjamin Chang MD at [facility] Stent Ramus Intermedius Coronary Artery [employer] 05/25/2023 253681 / [id number] / [id number] [employer] Inc Stent Coronary De Rx Cocr Ors Msn 3.0x30mm 134496 - [id number] Implanted:Qty: 1 on 11/14/2022 by Carol Brady MD PhD at [facility] Stent Left: Other - see comments [employer] [id number] 02/10/2024 770573 / / [id number] Description:Posterior tibial artery [employer] Willard Excluder 12mm 7cm Internal Component Iliac Graft [id number] - [id number] - [id number] Implanted:Qty: 1 on 01/23/2024 by Dionisio Nam MD at [facility] Stent Right: Internal Iliac Vein [employer] [id number] 01/18/2026 RJN2134 07A / [id number] / W[employer] Excluder 14.5mm 28.5mm 12cm 5.5cm Conformable Active Control Trunk [id number] - [id number] - [id number] Implanted:Qty: 1 on 01/23/2024 by Dionisio Nam MD at [facility] Stent Right: Aorta [employer] [id number] 10/30/2026 EUH0618 12 / [id number] / W[employer] Willard-Talon Excluder 27mm 21.5-25mm 10cm Sinusoidal Stent Seal Cuff [id number] - [id number] - [id number] Implanted:Qty: 1 on 01/23/2024 by Dionisio Nam MD at [facility] Stent Right: Common Iliac Artery [employer] [id number] 05/30/2026 [id number] 00 / [id number] / W[employer] Willard Excluder 12mm 14cm Contralateral Leg Graft Endovascular [id number] - [id number] - [id number] Implanted:Qty: 1 on 01/23/2024 by Dionisio Nam MD at [facility] Stent Left: External Iliac Artery [employer] [id number] 08/08/2026 GSC7406 00 / [id number] / W[employer] 28.5mm 24-26mm 3.3cm Aorta Graft Endovascular Kwe595405 - [id number] - [id number] Implanted:Qty: 1 on 01/23/2024 by Dionisio Nam MD at [facility] Stent Right: Common Iliac Artery W[employer] [id number] 04/21/2024 ZWW3991 00 / [id number] / Chicas V[employer] Device Clsr Perclose Prostyle Sut-Mediatd Closure-Repair Sys 92731-40 - [id number] Implanted:Qty: 1 on 11/24/2022 by Moiz Whitten MD PhD at [facility] Vascular Closure Device [employer] 08/24/2024 78724-9 3 / / [id number] Ch[employer] V[employer] Device Clsr Perclose Prostyle Sut-Mediatd Closure-Repair Sys 31356-27 - [id number] Implanted:Qty: 1 on 11/24/2022 by Moiz Whitten MD PhD at [facility] Vascular Closure Device [employer] 08/24/2024 98331-0 3 / / [id number] Ch[employer] Mitraclip Implant G4 System [id number] - [id number] Implanted:Qty: 1 on 11/24/2022 by Moiz Whitten MD PhD at [facility] [employer] V[employer] BFV3884 0 / / Penumbra Inc Rosalinda Pod 8mm 60cm Complex Occulusion Device Coil Embolization Rbypod8 - [id number] Implanted:Qty: 1 on 01/09/2024 by Dionisio Nam MD at [facility] 06/26/2031 RBYPOD8 / / [id number] Penumbra Inc Pod 60cm Pack J-Soft Coil Embolization Sterile Latex Free Cgkpogo44 - [id number] Implanted:Qty: 1 on 01/09/2024 by Dionisio Nam MD at [facility] 11/02/2030 RBYPODJ 60 / / [id number] Penumbra Inc Pod 60cm Pack J-Soft Coil Embolization Sterile Latex Free Bpdngtz05 - [id number] Implanted:Qty: 1 on 01/09/2024 by Dionisio Nam MD at [facility] 11/02/2030 RBYPODJ 60 / / [id number] [facility] Penumbra Coil 400 Rosalinda .02in 14mm 60cm Complex Large Volume Fully [id number] - [id number] Implanted:Qty: 1 on 01/09/2024 by Dionisio Nam MD at [facility] [id number] 04/10/2031 IYD1A48 60 / / [id number] Penumbra Inc Pod 60cm Pack J-Soft Coil Embolization Sterile Latex Free Vfozzba30 - [id number] Implanted:Qty: 1 on 01/09/2024 by Dionisio Nam MD at [facility] 11/02/2030 RBYPODJ 60 / / [id number] [employer]icas V[employer] System Closure Repair Femoral Artery Suture Mediated Perclose Prostyle 54790-91 - [id number] Implanted:Qty: 1 on 01/23/2024 by Dionisio Nam MD at [facility] Left: Groin [employer] 08/24/2025 28132-0 3 / / [id number] Ch[employer] V[employer] System Closure Repair Femoral Artery Suture Mediated Perclose Prostyle 40467-90 - [id number] Implanted:Qty: 1 on 01/23/2024 by Dionisio Nam MD at [facility] Left: Groin [employer] 08/24/2025 23115-3 3 / / [id number] Chicas Vascular System Closure Repair Femoral Artery Suture Mediated Perclose Prostyle 58844-01 - [id number] Implanted:Qty: 1 on 01/23/2024 by Dionisio Nam MD at [facility] Right: Groin [employer] 08/24/2025 02866-6 3 / / [id number] Chicas V[employer] System Closure Repair Femoral Artery Suture Mediated Perclose Prostyle 57456-91 - [id number] Implanted:Qty: 1 on 01/23/2024 by Dionisio Nam MD at [facility] Right: Groin [employer] 08/24/2025 73711-1 3 / / [id number] Explanted Type Area Creative Developer Device Identifier Shelf Expiration Date Model / Serial / Lot Bard Peripheral Vascular Bard .25x.25in [place] Thk1.65mm Square P[employer]get Cardiovascular Ptfe [id number] - [id number] Explanted:Qty: 1 on 02/21/2023 by Marco Antonio Cary MD at [facility] N/A: Heart Bard Peripheral Vascular [id number] / / Insurance [employer] MEDICARE [facility] MEDICARE [employer] MEDICARE HMO Advance Directives For more information, please contact: [phone] * Full Code (Latest Code Status on [...] 5:32 AM 03/02/2023 8:18 PM Care Teams Client Technical Support Associate Relationship Specialty Start Date End Date Jose Kim DO PCP - General Internal Medicine 02/12/23 Jose Smith MD [address] [facility] [address] [place] [address] Consulting Physician Cardiology 03/29/23
--- OUTSIDE RECORDS SUMMARY | 2024-12-27 15:16 | XMS_ITS | Continuity of Care Document ---
Author Organization [facility] Address [address] [place] [address] [place] [address] Phone Care Team Providers Care Damage Assessor Name Role Phone Ashley OD, Allen Unavailable Unavailable Procedures Procedure Date Optic Nerve Topography Optic Nerve Topography Frame - Up To $160 BF Plastic Sphcyl [place] To +/-4d .12-2d Lens-Index 1.54-1.79 Glass Tint Photochromatic, Polycarb 0 Polycarb Lens Per Lens Eye Exam & Treatment Refraction Office/outpatient Visit, [facility] Advance Directives Directive Yes / No Effective Date File Name No Information Encounters Encounter Description Practice Location Reason(s) For Visit Diagnoses Date Provider Providers Copied on Encounter [facility], [address] [place] [address] [address], [place], [place], [id number], [place] tel:[phone] [facility] No Information 2-201 0 Ashley OD Allen. [facility] [address], [place], [address], [place]. tel:[phone] Referring Provider: Allen Ashley OD [facility] [address], [place], [address]. tel:[phone] [facility], [address] [place] [address] [address], [place], [place], [id number], tel:[phone] [facility] No Information 1-201 0 [facility]. [address] [facility], [address], [place], [place], [id number], [place]. tel:[phone] Referring Provider: Allen Ashley OD Aaron, [address], [place], [address]. tel:[phone] sulting Provider: Ema Mahoney, [address], [place], [facility]. tel:[phone] [facility], [address], [place], [place], [id number], [place] tel:[phone] [facility] No Information Dec- 0-201 0 Ashley OD Allen. [address], [address], [place], [address], [place]. tel:[phone] [facility]pat [facility], [address], [place], [place], [id number], [place] tel:[phone] [facility] No Information Jun- 6-200 9 Juan Jeferson. [address] [place] [address] [address], [place], [address], [place]. tel:[phone] Family History Family Member Type Diagnosis Age At Onset No Information Payers Payer name Insurance type Covered constitution party ID Authoriza tion(s) No Information Social History Type Description Quantity Date Captured Comments Sex Male Smoking Status No Information Chief Complaint And Reason For Visit No Information Reason For Referral Reason For Referral No Information History Of Present Illness Encounter Date Complaint History Of Prese nt Illness No Information Functional Status Date Functional Assessmen t No Information Instructions Date Instruction Additional Infor mation No Information Assessments Type Assessment Date No Information Patient Care Teams Name Effective Dates (start - stop) Status Members No Information
[2024-12-27 19:19] LABS: Add Urine Microscopic? YES; Appearance Urine Clear (Clear); Bacteria Urine None Seen /hpf; Bilirubin Urine Negative (Negative); Blood Urine 2+ (Negative); Color Urine Yellow (Yellow); Glucose Urine UA 3+ mg/dL (Negative); Ketones Urine Negative (Negative); Leukocyte Esterase Ur Negative LEU/UL (Negative); Nitrate Urine Negative (Negative); Non Pathogenic Casts 0-2; Protein Urine Negative (Negative); RBC Urine 21-50 /hpf (0-2); Specific Grav Ur 1.014 (1.001-1.035); Squamous Epithelial Cell Urine None Seen /hpf (Few); Urobilinogen Urine 0.2 mg/dL (<2.0); WBC Urine 0-5 /hpf (0-3); pH Urine 6.5 (5.0-9.0)
== END 2024-12-27 14:37 | disposition home or self-care (01) ==
LOC: ANHGOSHLAB 14:37
PROVIDERS: PCP Internal Medicine; Visit Provider Internal Medicine Nephrology
DX: R30.0 Dysuria (principal); R82.90 Unspecified abnormal findings in urine; Z87.440 Personal history of urinary (tract) infections
CPT/HCPCS: 81001

== ENCOUNTER 2025-01-21 10:41 | Outpatient (CLI) | payer MEDICARE, SELFPAY ==
[2025-01-21 12:15] LABS: Basophils Percent Auto 0.7 % (0.2-1.2); Eosinophils Absolute Auto 0.2 K/mm3 (0-0.3); Eosinophils Percent Auto 5.5 % (0-4.4); Hematocrit 39.6 % (42.0-52.0); Hemoglobin 12.3 g/dL (14.0-18.0); Immature Granulocyte Absolute 0.01 K/mm3 (0.00-0.031); Immature Granulocyte Percent A 0.2 % (0-0.5); Immature Platelet Fraction Pct 3.8 % (0.9-11.2); Lymphocytes Absolute Auto 1.49 K/mm3 (0.9-3.2); Lymphocytes Percent Auto 34.3 % (18.3-44.2); Mean Corpuscular HGB Conc 31.1 g/dl (32-36); Mean Corpuscular Hemoglobin 26.9 pg (26-34); Mean Corpuscular Volume 86.5 fl (80-100); Mean Platelet Volume 11.7 fl (7.4-10.4); Monocytes Absolute Auto 0.4 K/mm3 (0.1-0.6); Monocytes Percent Auto 10.1 % (2.6-8.5); Neutrophils Absolute Auto 2.1 K/mm3 (1.3-6.7); Neutrophils Percent Auto 49.2 % (45.5-73.1); Platelet Count Result 109 k/mm3 (150-375); Red Blood Count 4.58 M/mm3 (4.6-6.20); Red Cell Distribution Width 15.1 % (11.5-14.5); White Blood Count 4.4 K/mm3 (4.5-10.0)
[2025-01-21 13:14] LABS: Prostate Specific Antigen 7.5 ng/mL (< OR = 4.0)
== END 2025-01-21 10:42 | disposition home or self-care (01) ==
LOC: ANHGOSHLAB 10:43
PROVIDERS: PCP Internal Medicine; Visit Provider Internal Medicine
DX: N18.32 Chronic kidney disease, stage 3b (principal); R97.20 Elevated prostate specific antigen [PSA]
CPT/HCPCS: 36415; 84153; 85025; 85055

== ENCOUNTER 2025-02-26 19:39 | Emergency (ER) | payer MEDICARE, SELFPAY ==
[2025-02-26 19:50] VITALS: BP 107/73; PULSE 76; RESP 20; TEMP 36.4; O2SAT 100
--- NOTE | 2025-02-26 20:01 | ED_ITS ---
HPI - URI/Sore Throat General Chief Complaint: Upper Respiratory Infection Stated Complaint: wants covid test Time Seen by Provider: 02/26/25 19:50 Source: patient and RN notes reviewed Mode of arrival: ambulatory Limitations: no limitations History of Present Illness HPI Narrative: 84-year-old male presents Express Care complaining of cough, congestion, chills or proximally 3 days. Patient denies any chest pain, shortness of breath, runny nose headaches, nausea vomiting, diarrhea, or other symptoms. Patient has a history of heart failure and chronic kidney disease. Patient is requesting a COVID test. Related Data Home Medications ?Medication ?Instructions ?Recorded ?Confirmed ?Last Taken ?Type dapagliflozin propanediol 10 mg 10 mg PO DAILY 04/26/23 01/15/25 Unknown History tablet spironolactone 25 mg tablet 25 mg PO DAILY 04/26/23 01/15/25 Unknown History torsemide 5 mg tablet 2.5 mg PO QAM 05/10/23 01/15/25 Unknown History folic acid 400 mcg tablet 0.4 mg PO DAILY 05/31/23 01/15/25 Unknown History Allergies Allergy/AdvReac Type Severity Reaction Status Date / Time No Known Allergies Allergy Unknown Verified 02/26/25 20:11 Review of Systems Review of Systems: CONSTITUTIONAL: Denies fever, chills, or sweats. EYES: Denies visual changes, redness, or discharge. ENT: Denies rhinorrhea, sore throat, or otalgia. Positive for congestion. CARDIOVASCULAR: Denies chest pain, palpitations, or edema. RESPIRATORY: Positive for cough. Negative for wheezing or Dyspnea. GASTROINTESTINAL: Denies abdominal pain, nausea, vomiting, or diarrhea. GENITOURINARY: Denies dysuria or hematuria. SKIN: Denies rash or itching. MUSCULOSKELETAL: Denies back pain, joint pain, or myalgia. NEUROLOGIC: Denies headache, numbness, or weakness. PSYCHIATRIC: Denies anxiety or depression. All other systems reviewed are negative, except as documented in HPI. [facility] Past Medical History Medical History History of myocardial infarction Protein calorie malnutrition Congestive heart failure Vitamin D deficiency Dyslipidemia Surgical History Surgical History H/O mitral valve replacement with mechanical valve Hx of tonsillectomy (~1952) Family History Family History Mother Hypertension Social History Social History Smoking status: Former smoker Alcohol intake: current Substance use: never Substance use type: does not use Do You Feel Safe in your Home?: Yes Lack of Transportation: No Lack of Food: Never True Current Housing: I Have Housing Concerned About Future Housing: No Difficulty Paying Gas/Electric Bills: No Difficulty Paying for Meds: No Currently Unemployed: No Education: Associate Degree Difficulty w/ Childcare or Family Care: No Living arrangements: with family Additional living arrangements comments: Occupation/Education: retired Gender identity (if verbalized by the patient): Male Sexual Orientation (if Verbalized by the Patient): Straight or Heterosexual Spiritual care concerns: No Comments At the time of my signature, I reviewed and agree with the nursing past medical, surgical, social, and family history. There is no relevant family history pertinent to the patient complaint. Exam Narrative: GENERAL: This is a well-nourished, well-developed adult, in no apparent distress. They are non ill-appearing, nontoxic appearing. HEAD: normocephalic, atraumatic. EYES: Sclera clear/white. Conjunctiva normal. Vision is grossly intact. Extraocular movements intact EARS: External ears normal, auditory canals clear and without drainage, TMs normal without perforation. Hearing grossly intact. NOSE: External nose normal with no obvious nasal discharge, nasal turbinates erythematous bilaterally, no rhinorrhea. THROAT: Mucous membranes moist, posterior pharynx erythemic without swelling or exudate. Uvula midline. Postnasal drip present. NECK: Neck supple, non-tender without lymphadenopathy, masses or thyromegaly. CARDIOVASCULAR: Regular rate and rhythm without murmurs, gallops, or rubs. RESPIRATORY: Clear to auscultation. Breath sounds equal bilaterally. No wheezes, rales, or rhonchi. Respiratory rate normal, respiratory effort nonlabored, no respiratory distress, no accessory muscle use. SKIN: warm, Dry, intact with no suspicious lesions or rash, good texture and turgor. NEURO: awake, alert, and oriented to person, place and time. There were no obvious focal neurologic abnormalities. EXTREMITIES: No joint tenderness, effusion, or edema noted. BACK: Nontender without deformity. No CVA tenderness. Course Course Emergency Course: Portions of this record may have been created with voice recognition software Level of Care: Express Care Visit Vital Signs Vital signs: Reviewed MDM - URI/Sore Throat MDM Narrative Medical decision making narrative: Rapid COVID is positive. Negative rapid flu. Patient has a history of heart failure chronic kidney disease discussed with patient about further treatment would recommend Molnupiravir for patient given since he is high risk for progressing to severe COVID. Patient is in no apparent distress, no respiratory distress, hemodynamically stable, normal oxygen saturations. Will prescribe patient Molnupiravir given risk factors. Patient cannot take Paxlovid due to possible interactions with his plavix and statin. Will prescribe benzonatate tablets as needed for cough. Strict ER precautions discussed with patient, even told him to consider calling 911 especially develops difficulty breathing, chest pains, unable to speak in full sentences, grunting shortness of breath, nausea, vomiting, severe weakness, confusion, or any other serious concerns. Patient says he lives with his spouse those spouse will keep an eye on him at home as well. Discussed physical exam findings. Advised supportive measures and signs/symptoms to go to the ER. Pt is appropriate for outpt treatment and f/u. Differential Diagnosis Differential diagnosis: Likely upper respiratory infection, viral infection, influenza and other (COVID-19) Lab Data Attestation: I reviewed the patient's lab results. Lab results narrative: Positive COVID Critical Care Time Critical Care Time Critical Care Time: No Discharge Plan Discharge Clinical Impression: COVID Patient Disposition: Home Condition: Stable Instructions: COVID-19 (Coronavirus Disease 2019) (ED), COVID-19 and Chronic Health Conditions (ED), How to Recover from COVID-19 at Home (ED) Additional Instructions: You tested positive for COVID today. COVID is a viral illness antibiotics will not work on it. COVID normally last 7-10 days. Given your medical history will go ahead and start you on Molnupiravir. Please take Molnupiravir as directed. Follow-up with PCP in 3-5 days. Please go to the ER immediately if he develops increased work of breathing, shortness of breath, difficulty breathing, unable to talk in full sentences, chest pains, grunting, nausea, vomiting, confusion, severe weakness, or any serious concerns. Patient Language: Lithuanian Prescriptions: New molnupiravir 200 mg capsule 800 mg PO Q12H 5 Days Qty: 40 0RF benzonatate 100 mg capsule 100 mg PO TID PRN (Reason: cough) Qty: 20 0RF No Action dapagliflozin propanediol 10 mg tablet 10 mg PO DAILY spironolactone 25 mg tablet 25 mg PO DAILY torsemide 5 mg tablet 2.5 mg PO QAM folic acid 400 mcg tablet 0.4 mg PO DAILY clopidogrel [Plavix] 75 mg tablet 75 mg PO DAILY Qty: 30 5RF atorvastatin 80 mg tablet 80 mg PO DAILY Qty: 30 5RF Follow-up/Referrals: UNKNOWN,DOCTOR [Primary Care Provider] - Time of Disposition: 20:15
[2025-02-26 20:25] LABS: EDCOVIDSCREEN Positive (Negative); EDINFLUASCREEN Negative (Negative); EDINFLUBSCREEN Negative (Negative)
== END 2025-02-26 20:18 | disposition home or self-care (01) ==
DX: U07.1 COVID-19 (principal); Z87.891 Personal history of nicotine dependence; E78.5 Hyperlipidemia, unspecified; I50.9 Heart failure, unspecified; I25.2 Old myocardial infarction; Z95.2 Presence of prosthetic heart valve
CPT/HCPCS: 87426; 87804; 99213; G0463

== ENCOUNTER 2025-07-13 14:49 | Emergency (ER) | payer MEDICARE, SELFPAY ==
--- NOTE | ~2025-07-13 | XR_ITS ---
EXAMINATION: XR chest 2V DATE: 07/13/2025 16:24 INDICATION: Cough. TECHNIQUE: Frontal and lateral views of the chest were obtained. COMPARISON: None. FINDINGS: Cardiomegaly with postoperative changes of the heart. Pacemaker device in place. Significant emphysematous lungs without acute pulmonary lesions. IMPRESSION: 1. Emphysema of lungs. Cardiomegaly and postoperative changes of the heart. Reviewed, dictated and finalized at location [facility] [employer]
[2025-07-13 15:02] VITALS: BP 124/68; PULSE 85; RESP 16; TEMP 37; O2SAT 98
--- NOTE | 2025-07-13 16:12 | ED_ITS ---
HPI - General Adult General Chief complaint: Upper Respiratory Infection Stated complaint: Congestion; Cough Source: patient Mode of arrival: ambulatory Limitations: no limitations History of Present Illness HPI narrative: Pt presents for evaluation of respiratory symptoms for the past 6 days. Patient reports sinus congestion, nasal drainage, and productive cough of clear and yellow sputum. Denies any shortness of breath, fever, chills, nausea, vomiting, or diarrhea. He does have a sore throat that he attributes to coughing. He has been taking vincent-seltzer cold and sinus without much improvement. Related Data Home Medications ?Medication ?Instructions ?Recorded ?Confirmed ?Last Taken ?Type dapagliflozin propanediol 10 mg 10 mg PO DAILY 3 07/13/25 Unknown History tablet spironolactone 25 mg tablet 25 mg PO DAILY 04/26/23 Unknown History torsemide 5 mg tablet 2.5 mg PO QAM 05/10/2305/15 Unknown History folic acid 400 mcg tablet 0.4 mg PO DAILY 05/31/23 Unknown History Allergies Allergy/AdvReac Type Severity Reaction Status Date / Time No Known Allergies Allergy Unknown Verified 07/13/25 15:13 Review of Systems Review of Systems: CONSTITUTIONAL: Denies fever, chills, or sweats. EYES: Denies visual changes, redness, or discharge. ENT: reports sinus congestion and drainage. Reports sore throat that he attributes to coughing CARDIOVASCULAR: Denies chest pain, palpitations, or edema. RESPIRATORY: reports cough. Denies shortness of breath. GASTROINTESTINAL: Denies abdominal pain, nausea, vomiting, or diarrhea. GENITOURINARY: Denies dysuria or hematuria. SKIN: Denies rash or itching. MUSCULOSKELETAL: Denies back pain, joint pain, or myalgia. NEUROLOGIC: Denies headache, numbness, dizziness, or weakness. PSYCHIATRIC: Denies anxiety or depression. [facility] Past Medical History Medical History History of myocardial infarction Protein calorie malnutrition Congestive heart failure Vitamin D deficiency Dyslipidemia Surgical History Surgical History H/O mitral valve replacement with mechanical valve Hx of tonsillectomy (~195) Family History Family History Mother Hypertension Social History Social History Smoking status: Former smoker Alcohol intake: current Substance use: never Substance use type: does not use Lack of Transportation: No Lack of Food: Never True Current Housing: I Have Housing Concerned About Future Housing: No Difficulty Paying Gas/Electric Bills: No Difficulty Paying for Meds: No Currently Unemployed: No Education: Associate Degree Difficulty w/ Childcare or Family Care: No Living arrangements: with family Additional living arrangements comments: Occupation/Education: retired Gender identity (if verbalized by the patient): Male Sexual Orientation (if Verbalized by the Patient): Straight or Heterosexual Spiritual care concerns: No Exam Narrative: GENERAL: Well-appearing, well-nourished, and in no acute distress. HEAD: Normocephalic, atraumatic. EYES: PERRLA and EOMI. ENT: Nares clear, no rhinorrhea or epistaxis. Mucous membranes moist. Oropharynx without tonsillar hypertrophy exudate or other lesions. Bilateral TMs pearly murphy nonbulging NECK: Supple. No adenopathy or masses. No carotid bruits or JVD CHEST: Clear to auscultation. No respiratory distress. No wheezes rales or rhonchi HEART: Regular rate and rhythm. No murmur heard. Normal peripheral pulses. ABDOMEN: Soft, nontender, nondistended, normal active bowel sounds. EXTREMITIES: Normal range of motion. No edema. SKIN: Warm, dry, no rash. NEURO: No focal deficits. Alert and oriented x3. PSYCH: Normal mood and affect. Course Course Emergency Course: This is an 84-year-old male who presented for evaluation of respiratory symptoms. COVID and influenza were negative. Chest x-ray without evidence of infection. Pt meets criteria for ABRS based upon mucopurulent nature of his dischage. Will dc with augmentin. Increase fluid intake. OTC agents for symptom management. FOllow up with primary provider. Go to the ER for worsening symptoms. Pt in agreement with plan of care. Level of Care: Express Care Visit Vital Signs Vital signs: Vital Signs Temperature 37.0 C 07/13/25 15:02 Pulse Rate 85 12/20/25 15:02 Respiratory Rate 16 07/13/25 15:02 Blood Pressure 124/68 07/13/25 15:02 Pulse Oximetry 98 07/13/25 15:02 Temperature 37.0 C 07/13/25 15:02 Pulse Rate 85 07/13/25 15:02 Respiratory Rate 16 07/13/25 15:02 Blood Pressure 124/68 07/13/25 15:02 Pulse Oximetry 98 07/13/25 15:02 Oxygen Delivery Room Air 07/13/25 15:14 [facility] Differential Diagnosis Differential Diagnosis: covid vs flu vs pnuemonia vs arbs vs other Imaging Data Radiologist's impression: ITS Impressions Chest X-Ray 07/13/25 16:27 IMPRESSION: 1. Emphysema of lungs. Cardiomegaly and postoperative changes of the heart. Discharge Plan Discharge Clinical Impression: Sinusitis Patient Disposition: Home Condition: Stable Instructions: Antibiotic Form, Sinusitis (ED) Patient Language: Telugu Prescriptions: New amoxicillin-pot clavulanate 875-125 mg tablet 1 tablet PO Q12H Qty: 20 0RF benzonatate 200 mg capsule 200 mg PO TID PRN (Reason: cough) Qty: 20 0RF No Action molnupiravir 200 mg capsule 800 mg PO Q12H 5 Days Qty: 40 0RF benzonatate 100 mg capsule 100 mg PO TID PRN (Reason: cough) Qty: 20 0RF dapagliflozin propanediol 10 mg tablet 10 mg PO DAILY spironolactone 25 mg tablet 25 mg PO DAILY torsemide 5 mg tablet 2.5 mg PO QAM folic acid 400 mcg tablet 0.4 mg PO DAILY clopidogrel [Plavix] 75 mg tablet 75 mg PO DAILY Qty: 30 5RF atorvastatin 80 mg tablet 80 mg PO DAILY Qty: 30 5RF Follow-up/Referrals: Stan Daniel MD [Physician, Family Practice] Time of Disposition: 16:44
== END 2025-07-13 16:50 | disposition home or self-care (01) ==
PROVIDERS: Emergency Provider Nurse Practitioner
DX: J32.9 Chronic sinusitis, unspecified (principal); I50.9 Heart failure, unspecified; I25.2 Old myocardial infarction; E55.9 Vitamin D deficiency, unspecified; E78.5 Hyperlipidemia, unspecified; Z95.2 Presence of prosthetic heart valve; Z87.891 Personal history of nicotine dependence
CPT/HCPCS: 71046; 99213; G0463